=== PATIENT | female | born 1950 | race Caucasian/White ===

== ENCOUNTER 2019-06-14 08:24 | Day surgery (SDC) | payer MEDICARE, OTHER ==
[~2019-06-14] VITALS: Ht 158.8 cm; Wt 82.1 kg
[2019-06-14] MEDS ORDERED: LACTATED RINGERS 1,000 ML IV SCH (09:11)
[2019-06-14] MEDS ORDERED: CALCIUM PO (09:13)
[2019-06-14] MEDS ORDERED: ESOM40CA PO (09:13)
[2019-06-14 09:16] VITALS: BP 123/83
[2019-06-14] MEDS ORDERED: LIDOCAINE-MPF 1%, 2ML INFIL ONE (09:30)
[2019-06-14] MEDS ORDERED: PROPOFOL 10 MG/ML, 20ML ONE ×3 (10:25)
== END 2019-06-14 13:15 | disposition home or self-care (01) ==
LOC: OUT 08:24
PROVIDERS: ATTEND Internal Medicine
DX: D12.2 Benign neoplasm of ascending colon (principal); K21.9 Gastro-esophageal reflux disease without esophagitis; Z88.5 Allergy status to narcotic agent; Z88.8 Allergy status to other drugs, medicaments and biological substances; Z88.1 Allergy status to other antibiotic agents; Z91.011 Allergy to milk products
CPT/HCPCS: 45380; 45381; 45385; 88305; 93005; J2704; J7120